=== PATIENT | female | born 1985 | race African-American/Black ===

== ENCOUNTER 2017-01-13 00:22 | Emergency (ER) ==
[2017-01-13 00:29] VITALS: BP 136/89
== END 2017-01-13 02:06 | disposition left against medical advice (07) ==
LOC: ER 00:22
DX: Z53.21 Procedure and treatment not carried out due to patient leaving prior to being seen by health care provider (principal)

== ENCOUNTER 2017-02-17 08:44 | Emergency (ER) | payer SELFPAY ==
--- NOTE | 2017-02-17 10:00 | ER Document Report ---
HPI - HPI Patient complains to provider of: finger pain Pain Level: 2 Context: 31 yo female c/o pain and open wound to right index finger x 2 weeks. no known trauma. had pustule, boyfriend popped it. reports small amount of blood and purulent material expressed. pain is now traveling down finger into hand and forearm. no fever, no paresthesia Associated Symptoms: None Exacerbated by: Movement Relieved by: Denies Similar symptoms previously: No Recently seen / treated by doctor: No - ROS Systems Reviewed and Negative: Yes All other systems reviewed and negative - DERM Skin Color: Normal Past Medical History - General Information source: Patient - Social History Smoking Status: Current Every Day Smoker Chew tobacco use (# tins/day): No Frequency of alcohol use: None Drug Abuse: None Lives with: Family Family History: Reviewed & Not Pertinent Patient has suicidal ideation: No Patient has homicidal ideation: No - Medical History Medical History: Negative Renal/ Medical History: Denies: Hx Peritoneal Dialysis - Immunizations Hx Diphtheria, Pertussis, Tetanus Vaccination: Yes Vertical Provider Document - CONSTITUTIONAL Agree With Documented VS: Yes Exam Limitations: No Limitations - INFECTION CONTROL TRAVEL OUTSIDE OF THE [place] IN LAST 30 DAYS: No - HEENT HEENT: Atraumatic, PERRLA - NECK Neck: Normal Inspection, Supple - RESPIRATORY Respiratory: Breath Sounds Normal, No Respiratory Distress O2 Sat by Pulse Oximetry: 97 - CARDIOVASCULAR Cardiovascular: Regular Rate, Regular Rhythm - MUSCULOSKELETAL/EXTREMETIES Musculoskeletal/Extremeties: Tender - distal right index finger with 2mm wound surrounding calloused skin. mild erythema. no drainage. no nail involvment. no felon. no lymphangitis Course - Re-evaluation Re-evalutation: 02/17/17 10:10 xray negative. no signs of osteomylitis. hand fully functional with good sensation and circulation. will treat with antibiotics and have patient f/u with primary care. pt agreeable with plan and stable for discharge - Vital Signs Vital signs: Temp Pulse Resp BP Pulse Ox 98.6 F 107 H 16 116/82 97 02/17/17 08:48 02/17/17 08:48 02/17/17 08:48 02/17/17 08:48 02/17/17 08:48 Discharge - Discharge Clinical Impression: Finger infection Condition: Stable Disposition: HOME, SELF-CARE Instructions: Cellulitis ([facility]), Antibiotic Therapy ([facility]), Antibiotic Ointment Protection ([facility]), Temporary Splint ([facility]) Additional Instructions: Your xray was negative for bony injury or deep tissue infection wash wound with antibacterial soap and water, apply antibiotic ointment after cleaning wear finger tip splint for protection and comfort follow up with primary care if symptoms persist or worsen Prescriptions: Clindamycin HCl [Cleocin HCl] 300 mg PO QID #40 capsule Forms: Return to Work
--- NOTE | 2017-02-17 10:05 | RADIOLOGY REPORT (SQ) ---
EXAM DESCRIPTION: FINGER RIGHT COMPLETED DATE/TIME: 02/17/2017 9:48 am REASON FOR STUDY: finger infection COMPARISON: None. NUMBER OF VIEWS: Three views. TECHNIQUE: AP, lateral, and oblique images acquired of the right second finger. LIMITATIONS: None. FINDINGS: MINERALIZATION: Normal. BONES: No acute fracture or dislocation. No worrisome bone lesions. SOFT TISSUES: No soft tissue swelling. No foreign body. OTHER: No other significant finding. IMPRESSION: NO RADIOGRAPHIC EVIDENCE OF ACUTE INJURY. COMMENT: SITE OF TRAUMA/COMPLAINT MARKED/STAMP COMPLETED: Yes TECHNICAL DOCUMENTATION: JOB ID: [id number] [employer]- All Rights Reserved
[2017-02-17 10:43] VITALS: BP 101/75
== END 2017-02-17 10:48 | disposition home or self-care (01) ==
LOC: ER 08:44
DX: L08.9 Local infection of the skin and subcutaneous tissue, unspecified (principal); L84 Corns and callosities; M79.644 Pain in right finger(s); F17.200 Nicotine dependence, unspecified, uncomplicated
CPT/HCPCS: 99283

== ENCOUNTER 2017-03-06 05:18 | Emergency (ER) | payer SELFPAY ==
[2017-03-06 06:12] LABS: ABSOLUTE LYMPHOCYTES (AUTO) 1.5 10^3/uL (0.5-4.7); ABSOLUTE MONOCYTES (AUTO) 0.6 10^3/uL (0.1-1.4); ABSOLUTE NEUT (AUTO) 11.3 10^3/uL (1.7-8.2); BASOPHILS % (AUTO) 0.2 % (0-2); EOSINOPHILS % (AUTO) 0.2 % (0-6); HEMATOCRIT 33.5 % (36.0-47.0); HEMOGLOBIN 11.2 g/dL (12.0-15.5); HGB HCT DIFFERENCE 0.1; LYMPHOCYTES % (AUTO) 11.4 % (13-45); MEAN CORPUSCULAR HEMOGLOBIN 26.3 pg (27.0-33.4); MEAN CORPUSCULAR HGB CONC 33.4 g/dL (32.0-36.0); MEAN CORPUSCULAR VOLUME 79 fl (80-97); MONOCYTES % (AUTO) 4.8 % (3-13); RED BLOOD COUNT 4.26 10^6/uL (3.72-5.28); RED CELL DISTRIBUTION WIDTH 14.6 % (11.5-14.0); SEGMENTED NEUTROPHILS % (AUTO) 83.4 % (42-78); WHITE BLOOD COUNT 13.6 10^3/uL (4.0-10.5)
[2017-03-06 06:19] LABS: APPEARANCE,URINE SLIGHTLY-CLOUDY; BILIRUBIN,URINE NEGATIVE (NEGATIVE); GLUCOSE, URINE NEGATIVE (NEGATIVE); KETONES,URINE TRACE mg/dL (NEGATIVE); LEUKOCYTE ESTERASE,URINE NEGATIVE (NEGATIVE); NITRITE,URINE NEGATIVE (NEGATIVE); PROTEIN,URINE NEGATIVE (NEGATIVE); URINE SPECIFIC GRAVITY 1.019; UROBILINOGEN,URINE NEGATIVE mg/dL (<2.0)
[2017-03-06 06:24] LABS: ANION GAP 12 (5-19); BLOOD UREA NITROGEN 10 mg/dL (7-20); CALCIUM 9.2 mg/dL (8.4-10.2); CARBON DIOXIDE 21 mmol/L (22-30); CHLORIDE 107 mmol/L (98-107); CREATININE RESULT 0.74 mg/dL (0.52-1.25); GLUCOSE 128 mg/dL (75-110); POTASSIUM 3.6 mmol/L (3.6-5.0); SODIUM 140.2 mmol/L (137-145)
--- NOTE | 2017-03-06 06:29 | ER Document Report ---
ED General - General Chief Complaint: Vag Bleeding, +preg <12wks Stated Complaint: ABDOMINAL PAIN AND DISCHARGE Time Seen by Provider: 03/06/17 06:02 Mode of Arrival: Ambulatory Information source: Patient Notes: 31 yr old female 6.5 weeks presents with complaints of vaginal bright red spotting over the past 10 days. pt denies any fevers or chills, nausea or vomiting. TRAVEL OUTSIDE OF THE [place] IN LAST 30 DAYS: No - HPI Onset: Last week Onset/Duration: Persistent Quality of pain: Cramping Severity: Mild Pain Level: 1 Associated symptoms: Other Exacerbated by: Denies Relieved by: Denies Similar symptoms previously: No Recently seen / treated by doctor: No - Related Data Allergies/Adverse Reactions: hydromorphone [From Dilaudid] Allergy (Verified 02/17/17 08:49) Past Medical History - Social History Smoking Status: Never Smoker Cigarette use (# per day): No Chew tobacco use (# tins/day): No Smoking Education Provided: No Family History: Reviewed & Not Pertinent Patient has suicidal ideation: No Patient has homicidal ideation: No Renal/ Medical History: Denies: Hx Peritoneal Dialysis - Immunizations Hx Diphtheria, Pertussis, Tetanus Vaccination: Yes Review of Systems - Review of Systems Notes: REVIEW OF SYSTEMS: CONSTITUTIONAL : Denies fever, chills, or sweats. Denies recent illness. EENT: Denies eye, ear, throat, or mouth pain or symptoms. Denies nasal or sinus congestion or discharge. Denies throat, tongue, or mouth swelling or difficulty swallowing. CARDIOVASCULAR: Denies chest pain. Denies palpitations or racing or irregular heart beat. Denies ankle edema. RESPIRATORY: Denies cough, cold, or chest congestion. Denies shortness of breath, difficulty breathing, or wheezing. GASTROINTESTINAL: Denies abdominal pain or distention. Denies nausea, vomiting , or diarrhea. Denies blood in vomitus, stools, or per rectum. Denies black, tarry stools. Denies constipation. GENITOURINARY: Denies difficulty urinating, painful urination, burning, frequency, blood in urine, or discharge. FEMALE GENITOURINARY: admits to vaginal bleeding MUSCULOSKELETAL: Denies back or neck pain or stiffness. Denies joint pain or swelling. SKIN: Denies rash, lesions or sores. HEMATOLOGIC : Denies easy bruising or bleeding. LYMPHATIC: Denies swollen, enlarged glands. NEUROLOGICAL: Denies confusion or altered mental status. Denies passing out or loss of consciousness. Denies dizziness or lightheadedness. Denies headache. Denies weakness or paralysis or loss of use of either side. Denies problems with gait or speech. Denies sensory loss, numbness, or tingling. Denies seizures. PSYCHIATRIC: Denies anxiety or stress. Denies depression, suicidal ideation, or homicidal ideation. ALL OTHER SYSTEMS REVIEWED AND NEGATIVE. PHYSICAL EXAMINATION: GENERAL: Well-appearing, well-nourished and in no acute distress. HEAD: Atraumatic, normocephalic. EYES: Pupils equal round and reactive to light, extraocular movements intact, conjunctiva are normal. ENT: Nares patent, oropharynx clear without exudates. Moist mucous membranes. NECK: Normal range of motion, supple without lymphadenopathy LUNGS: Breath sounds clear to auscultation bilaterally and equal. No wheezes rales or rhonchi. HEART: Regular rate and rhythm without murmurs ABDOMEN: Soft, nontender, nondistended abdomen. No guarding, no rebound. No masses appreciated. Female : deferred Musculoskeletal: Normal range of motion, no pitting or edema. No cyanosis. NEUROLOGICAL: Cranial nerves grossly intact. Normal speech, normal gait. Normal sensory, motor exams PSYCH: Normal mood, normal affect. SKIN: Warm, Dry, normal turgor, no rashes or lesions noted. Dictation was performed using [employer] voice recognition software Physical Exam - Vital signs Vitals: Temp Pulse Resp BP Pulse Ox 98.8 F 115 H 18 133/81 H 96 03/06/17 05:27 03/06/17 05:27 03/06/17 05:27 03/06/17 05:27 03/06/17 05:27 Course - Re-evaluation Re-evalutation: 03/06/17 06:31 lab work , u/s pending to rule out ectopic vs threatened miscarriage 03/06/17 07:23 Patient's hCG is approximately 10,000, ultrasound report and my conversation with the radiologist notes a 5-1/2 week , however I will have the patient follow-up for hCG repeat in 48 hours patient is happy with this plan After performing a Medical Screening Examination, I estimate there is LOW risk for ACUTE APPENDICITIS, BOWEL OBSTRUCTION, ACUTE CHOLECYSTITIS, PERFORATED DIVERTICULITIS, INCARCERATED HERNIA, PANCREATITIS, PELVIC INFLAMMATORY DISEASE, PERFORATED ULCER, ECTOPIC , or TUBO-OVARIAN ABSCESS, thus I consider the discharge disposition reasonable. Also, there is no evidence or peritonitis , sepsis, or toxicity. I have reevaluated this patient multiple times and no significant life threatening changes are noted. The patient and I have discussed the diagnosis and risks, and we agree with discharging home with close follow-up with the understanding that symptoms and presentations can change. We also discussed returning to the Emergency Department immediately if new or worsening symptoms occur. We have discussed the symptoms which are most concerning (e.g., bloody stool, fever, changing or worsening pain, vomiting) that necessitate immediate return. 03/06/17 07:25 - Vital Signs Vital signs: Temp Pulse Resp BP Pulse Ox 98.8 F 115 H 18 133/81 H 96 03/06/17 05:27 03/06/17 05:27 03/06/17 05:27 03/06/17 05:27 03/06/17 05:27 - Laboratory Result Diagrams: 03/06/17 05:57 03/06/17 05:57 Laboratory results interpreted by me: 03/06/17 03/06/17 03/06/17 05:45 05:57 05:57 WBC 13.6 H Hgb 11.2 L Hct 33.5 L MCV 79 L MCH 26.3 L RDW 14.6 H Seg Neutrophils % 83.4 H Lymphocytes % 11.4 L Absolute Neutrophils 11.3 H Carbon Dioxide 21 L Glucose 128 H Serum HCG, Qual Beta HCG, Quant Urine Ketones TRACE H 03/06/17 03/06/17 05:57 05:57 WBC Hgb Hct MCV MCH RDW Seg Neutrophils % Lymphocytes % Absolute Neutrophils Carbon Dioxide Glucose Serum HCG, Qual POSITIVE H Beta HCG, Quant 9848.00 H Urine Ketones - Diagnostic Test Radiology reviewed: Image reviewed, Reports reviewed Discharge - Discharge Clinical Impression: Threatened miscarriage in early Condition: Stable Disposition: HOME, SELF-CARE Instructions: [facility] [employer], Threatened Miscarriage ([facility]) Additional Instructions: Follow up with your physician tomorrow for further care or return to the ED IMMEDIATELY if symptoms worsen or new concerns occur. If you cannot afford to follow up with your primary care physician a list of low cost clinics have been provided at the end of your discharge papers as well. Forms: Return to Work, Follow-Up Laboratory Testing
--- NOTE | 2017-03-06 06:49 | RADIOLOGY REPORT (SQ) ---
EXAM DESCRIPTION: U/S OB TRANSVAG W/DOPPLER COMPLETED DATE/TIME: 03/06/2017 6:32 am REASON FOR STUDY: with vaginal bleeding COMPARISON: None. TECHNIQUE: Transvaginal static and realtime grayscale images acquired of the pelvis. Additional estee cted spectral and color Doppler images recorded. All images stored on PACs. BHCG: Not available. LIMITATIONS: None. FINDINGS: UTERUS: No pole identified. Likely intrauterine gestational sac with decidual react ion possible yolk sac ; if viable mean sac diameter of 1.0 cm would correspond with a gestational age of 5 weeks and 5 days. RIGHT ADNEXA: Normal ovary with normal vascular flow. 3.5 cm. No adnexal free fluid. No adnexal masses. 1.2 cm likely corpus luteal cyst. LEFT ADNEXA: Normal ovary with normal vascular flow. 2.3 cm. No adnexal free fluid. No adnexal masses. FREE FLUID: None. OTHER: 2.9 cm cervical length. IMPRESSION: Likely intrauterine gestational sac. No pole identified at this time. Differenti al diagnosis includes early viable gestation, gestational loss, or occult ectopic gestation. ECTOPIC CANNOT BE EXCLUDED. FOLLOW-UP ULTRASOUND AND SERIAL BHCG LEVELS STRONGLY RECOMMENDED TO ACCURATELY ASSESS STATU S. TECHNICAL DOCUMENTATION: JOB ID: [id number] [employer]- All Rights Reserved
[2017-03-06 08:04] VITALS: BP 104/70
== END 2017-03-06 08:05 | disposition home or self-care (01) ==
LOC: ER 05:18
DX: O20.0 Threatened abortion (principal); O46.91 Antepartum hemorrhage, unspecified, first trimester; Z3A.01 Less than 8 weeks gestation of pregnancy
CPT/HCPCS: 36415; 76817; 80048; 81001; 84702; 84703; 85025; 86900; 86901; 93976; 99284

== ENCOUNTER → 2017-03-08 | Outpatient (CLI) | payer SELFPAY | LOC: LAB 15:52 | PROVIDERS: ATTEND Emergency Medicine | DX: O20.0 Threatened abortion (principal) | CPT/HCPCS: 36415; 84702 ==

== ENCOUNTER 2017-04-29 05:01 | Emergency (ER) | payer MEDICAID ==
[2017-04-29 06:31] LABS: APPEARANCE,URINE SLIGHTLY-CLOUDY; BILIRUBIN,URINE NEGATIVE (NEGATIVE); CALCIUM OXALATE CRYSTALS,URINE MANY /HPF; GLUCOSE, URINE NEGATIVE (NEGATIVE); KETONES,URINE NEGATIVE (NEGATIVE); LEUKOCYTE ESTERASE,URINE NEGATIVE (NEGATIVE); NITRITE,URINE NEGATIVE (NEGATIVE); PROTEIN,URINE NEGATIVE (NEGATIVE); URINE SPECIFIC GRAVITY 1.027; UROBILINOGEN,URINE NEGATIVE mg/dL (<2.0)
[2017-04-29] MEDS ORDERED: NORMAL SALINE 1000 ML 1,000 ML IV ONE (06:48)
--- NOTE | 2017-04-29 06:48 | ER Document Report ---
ED General - General Mode of Arrival: Ambulatory Information source: Patient TRAVEL OUTSIDE OF THE [place] IN LAST 30 DAYS: No - HPI Onset: Other - 3 days Associated symptoms: Other - see above <GRETA SIU - Last Filed: 04/29/17 11:25> <FOREST COBB - Last Filed: 04/29/17 16:48> - General Chief Complaint: Headache Stated Complaint: HEADACHES Time Seen by Provider: 04/29/17 06:27 Notes: Patient is a 32 year old female who presents to the ED with complaints of a headache x3 days. She states that the headaches never fully go away and it is sharp. She states she has also had heart palpitations, dizziness and felt lightheaded at various times and when she lays in certain positions. She is currently 13 weeks and has felt nauseous. She has not had any vomiting recently. She recently started taking Dicelgis for her nausea and states it has been making her feel worse. She has no allergies to any medications. (GRETA SIU) - Related Data Allergies/Adverse Reactions: hydromorphone [From Dilaudid] Allergy (Verified 02/17/17 08:49) Past Medical History - General Information source: Patient - Social History Smoking Status: Unknown if Ever Smoked Family History: Reviewed & Not Pertinent Patient has suicidal ideation: No Patient has homicidal ideation: No Renal/ Medical History: Denies: Hx Peritoneal Dialysis - Immunizations Hx Diphtheria, Pertussis, Tetanus Vaccination: Yes <GRETA SIU - Last Filed: 04/29/17 11:25> Review of Systems - Review of Systems Constitutional: No symptoms reported EENT: No symptoms reported Cardiovascular: See HPI, Palpitations, Dizziness, Lightheaded Respiratory: No symptoms reported Gastrointestinal: See HPI, Nausea Genitourinary: No symptoms reported Female Genitourinary: No symptoms reported Musculoskeletal: No symptoms reported Skin: No symptoms reported Hematologic/Lymphatic: No symptoms reported Neurological/Psychological: See HPI, Headaches <GRETA SIU - Last Filed: 04/29/17 11:25> Physical Exam - General General appearance: Alert - HEENT Head: Normocephalic, Atraumatic Eyes: Normal Extraocular movements intact: Yes Pupils: PERRL Mucous membranes: Dry - Respiratory Respiratory status: No respiratory distress Breath sounds: Normal - Cardiovascular Rhythm: Regular Heart sounds: Normal auscultation Murmur: No - Abdominal Inspection: Gravid female - Back Back: Normal - Extremities General upper extremity: Normal inspection, Normal ROM General lower extremity: Normal inspection, Normal ROM. No: Edema - Neurological Neuro grossly intact: Yes - Psychological Associated symptoms: Normal affect, Normal mood - Skin Skin Temperature: Warm Skin Moisture: Dry Skin Color: Normal <GRETA SIU - Last Filed: 04/29/17 11:25> - Vital signs Vitals: Temp Pulse Resp BP Pulse Ox 98.5 F 88 18 117/79 99 04/29/17 05:07 04/29/17 05:07 04/29/17 05:07 04/29/17 05:07 04/29/17 05:07 Course - Laboratory Result Diagrams: 04/29/17 06:55 04/29/17 06:55 - EKG Interpretation by Ri EKG shows normal: Sinus rhythm Rate: Normal - 89 Rhythm: NSR When compared to previous EKG there are: No significant change <GRETA SIU - Last Filed: 04/29/17 11:25> - Laboratory Result Diagrams: 04/29/17 06:55 04/29/17 06:55 <FOREST COBB - Last Filed: 04/29/17 16:48> - Re-evaluation Re-evalutation: 04/29/17 Patient is a 32-year-old female who comes in complaining of headache, palpitations, dry mouth, nausea. Patient recently was started on Diclegis for nausea and . Patient states that since she started taking the medication this is how she is feeling. Patient was given fluids and Reglan. She is feeling much better. No headache, palpitations, or nausea. Patient will be discharged home with prescription for Reglan. She is to return if she has any worsening or concerning symptoms. (FOREST COBB) - Vital Signs Vital signs: Temp Pulse Resp BP Pulse Ox 98.3 F 86 16 104/57 L 99 04/29/17 08:54 04/29/17 08:54 04/29/17 08:54 04/29/17 08:54 04/29/17 08:54 - Laboratory Laboratory results interpreted by me: 04/29/17 04/29/1717 05:25 06:55 06:55 WBC 12.3 H Hgb 10.2 L Hct 30.3 L MCV 79 L MCH 26.5 L RDW 15.1 H Absolute Neutrophils 8.5 H AST 55 H ALT 64 H Urine Ascorbic Acid 20 H Discharge <GRETA SIU - Last Filed: 04/29/17 11:25> <FOREST COBB - Last Filed: 04/29/17 16:48> - Discharge Clinical Impression: Palpitations Headache Qualifiers: Headache type: unspecified Headache chronicity pattern: unspecified pattern Intractability: not intractable Qualified Code(s): R51 - Headache Medication adverse effect Qualifiers: Encounter type: initial encounter Qualified Code(s): T88.7XXA - Unspecified adverse effect of drug or medicament, initial encounter Condition: Stable Disposition: HOME, SELF-CARE Instructions: Headache ([facility]), Medication Side Effects ([facility]), Palpitations ( Irregular or Rapid Heartrate) ([facility]), Reglan ([facility]) Additional Instructions: Stop taking Diclegis. Please make sure you are drinking plenty of fluids. Prescriptions: Ondansetron [Zofran Odt 4 mg Tablet] 1 tab PO Q6HP PRN #30 tab.rapdis PRN Reason: For Nausea/Vomiting Metoclopramide HCl [Reglan 10 mg Tablet] 1 tab PO TIDP PRN #30 tablet PRN Reason: Forms: Return to Work Referrals: FRANC EID MD [Primary Care Provider] - Follow up as needed Scribe Attestation: 04/29/17 16:47 I personally performed the services described in the documentation, reviewed and edited the documentation which was dictated to the scribe in my presence, and it accurately records my words and actions. (FOREST COBB) Scribe Documentation - Scribe Written by Rosemarie:: rosemarie Jaime, 04/29/2017, 0729 acting as scribe for :: Allie <GRETA SIU - Last Filed: 04/29/17 11:25>
[2017-04-29] MEDS ORDERED: METOCLOPRAMIDE HCL INJ/PF 10 MG/2 ML SDV IV ONE (06:49)
[2017-04-29 07:23] LABS: ABSOLUTE EOSINOPHILS # (AUTO) 0.2 10^3/uL (0.0-0.6); ABSOLUTE LYMPHOCYTES (AUTO) 2.7 10^3/uL (0.5-4.7); ABSOLUTE MONOCYTES (AUTO) 0.8 10^3/uL (0.1-1.4); ABSOLUTE NEUT (AUTO) 8.5 10^3/uL (1.7-8.2); BASOPHILS % (AUTO) 0.2 % (0-2); EOSINOPHILS % (AUTO) 1.7 % (0-6); HEMATOCRIT 30.3 % (36.0-47.0); HEMOGLOBIN 10.2 g/dL (12.0-15.5); HGB HCT DIFFERENCE 0.3; LYMPHOCYTES % (AUTO) 22.3 % (13-45); MEAN CORPUSCULAR HEMOGLOBIN 26.5 pg (27.0-33.4); MEAN CORPUSCULAR HGB CONC 33.5 g/dL (32.0-36.0); MEAN CORPUSCULAR VOLUME 79 fl (80-97); MONOCYTES % (AUTO) 6.9 % (3-13); RED BLOOD COUNT 3.83 10^6/uL (3.72-5.28); RED CELL DISTRIBUTION WIDTH 15.1 % (11.5-14.0); SEGMENTED NEUTROPHILS % (AUTO) 68.9 % (42-78); WHITE BLOOD COUNT 12.3 10^3/uL (4.0-10.5)
--- NOTE | 2017-04-29 07:25 | EKG REPORT ---
SEVERITY:- NORMAL ECG - SINUS RHYTHM : Confirmed by: Maximino Fine MD 29-Apr-2017 07:25:02
[2017-04-29 07:43] LABS: ALANINE AMINOTRANSFERASE 64 U/L (9-52); ALBUMIN 3.6 g/dL (3.5-5.0); ALKALINE PHOSPHATASE 73 U/L (38-126); ANION GAP 10 (5-19); ASPARTATE AMINO TRANSFERASE 55 U/L (14-36); BILIRUBIN,DIRECT 0.3 mg/dL (0.0-0.4); BILIRUBIN,TOTAL 0.3 mg/dL (0.2-1.3); BLOOD UREA NITROGEN 10 mg/dL (7-20); CALCIUM 9.7 mg/dL (8.4-10.2); CARBON DIOXIDE 24 mmol/L (22-30); CHLORIDE 104 mmol/L (98-107); CREATININE RESULT 0.77 mg/dL (0.52-1.25); GLUCOSE 83 mg/dL (75-110); POTASSIUM 3.8 mmol/L (3.6-5.0); SODIUM 137.5 mmol/L (137-145); TOTAL PROTEIN 6.5 g/dL (6.3-8.2)
[2017-04-29 08:56] VITALS: BP 104/57
== END 2017-04-29 08:54 | disposition home or self-care (01) ==
LOC: ER 05:01
DX: O9A.211 Injury, poisoning and certain other consequences of external causes complicating pregnancy, first trimester (principal); R51 Headache; R00.2 Palpitations; T45.0X5A Adverse effect of antiallergic and antiemetic drugs, initial encounter; Z3A.13 13 weeks gestation of pregnancy; R42 Dizziness and giddiness; O26.891 Other specified pregnancy related conditions, first trimester; R11.0 Nausea; R68.2 Dry mouth, unspecified; Z88.5 Allergy status to narcotic agent
CPT/HCPCS: 99284; 96374; 36415; 84443; 85025; 80053; 81001; 93005; 93010; J2765; J7030

== ENCOUNTER 2017-06-03 16:06 | Emergency (ER) | payer MEDICAID ==
[2017-06-03] MEDS ORDERED: NORMAL SALINE 1000 ML 1,000 ML IV ONE (16:24)
[2017-06-03] MEDS ORDERED: METOCLOPRAMIDE HCL INJ/PF 10 MG/2 ML SDV IV ONE (16:24)
--- NOTE | 2017-06-03 16:26 | ER Document Report ---
ED Medical Screen (RME) - General Chief Complaint: OB Problem (<20wks) Stated Complaint: HEADACHE,HAND SWELLING Time Seen by Provider: 06/03/17 16:21 TRAVEL OUTSIDE OF THE [place] IN LAST 30 DAYS: No - HPI Notes: 06/03/17 16:25 [facility] patient states she is taken 24 tablets of Tylenol in the last 72 hours. - Related Data Allergies/Adverse Reactions: hydromorphone [From Dilaudid] Allergy (Verified 06/03/17 16:12) Past Medical History - Social History Chew tobacco use (# tins/day): No Frequency of alcohol use: None Drug Abuse: None Pulmonary Medical History: Reports: Hx Asthma Renal/ Medical History: Denies: Hx Peritoneal Dialysis Past Surgical History: Reports: Hx Section - x2 - Immunizations Hx Diphtheria, Pertussis, Tetanus Vaccination: Yes Review of Systems - Review of Systems Neurological/Psychological: Headaches Physical Exam - Vital signs Vitals: Temp Pulse Resp BP Pulse Ox 98.7 F 105 H 18 117/79 99 06/03/17 16:12 06/03/17 16:12 06/03/17 16:12 06/03/17 16:12 06/03/17 16:12 - Respiratory Respiratory status: No respiratory distress Chest status: Nontender Breath sounds: Normal Chest palpation: Normal Course - Vital Signs Vital signs: Temp Pulse Resp BP Pulse Ox 98.7 F 105 H 18 117/79 99 06/03/17 16:12 06/03/17 16:12 06/03/17 16:12 06/03/17 16:12 06/03/17 16:12
[2017-06-03 16:48] LABS: APPEARANCE,URINE SLIGHTLY-CLOUDY; BILIRUBIN,URINE NEGATIVE (NEGATIVE); GLUCOSE, URINE NEGATIVE (NEGATIVE); KETONES,URINE NEGATIVE (NEGATIVE); LEUKOCYTE ESTERASE,URINE TRACE (NEGATIVE); NITRITE,URINE NEGATIVE (NEGATIVE); PROTEIN,URINE 30 mg/dL (NEGATIVE); URINE SPECIFIC GRAVITY 1.032; UROBILINOGEN,URINE NEGATIVE mg/dL (<2.0)
[2017-06-03 17:08] LABS: ABSOLUTE EOSINOPHILS # (AUTO) 0.1 10^3/uL (0.0-0.6); ABSOLUTE LYMPHOCYTES (AUTO) 2.2 10^3/uL (0.5-4.7); ABSOLUTE MONOCYTES (AUTO) 0.7 10^3/uL (0.1-1.4); ABSOLUTE NEUT (AUTO) 8.7 10^3/uL (1.7-8.2); BASOPHILS % (AUTO) 0.4 % (0-2); EOSINOPHILS % (AUTO) 1.1 % (0-6); HEMATOCRIT 31.3 % (36.0-47.0); HEMOGLOBIN 10.4 g/dL (12.0-15.5); HGB HCT DIFFERENCE -0.1; LYMPHOCYTES % (AUTO) 18.9 % (13-45); MEAN CORPUSCULAR HEMOGLOBIN 26.3 pg (27.0-33.4); MEAN CORPUSCULAR HGB CONC 33.1 g/dL (32.0-36.0); MEAN CORPUSCULAR VOLUME 80 fl (80-97); RED BLOOD COUNT 3.94 10^6/uL (3.72-5.28); RED CELL DISTRIBUTION WIDTH 14.8 % (11.5-14.0); SEGMENTED NEUTROPHILS % (AUTO) 73.6 % (42-78); WHITE BLOOD COUNT 11.9 10^3/uL (4.0-10.5)
--- NOTE | 2017-06-03 17:09 | ER Document Report ---
ED GI/ - General Chief Complaint: OB Problem (<20wks) Stated Complaint: HEADACHE,HAND SWELLING Time Seen by Provider: 06/03/17 16:21 Mode of Arrival: Ambulatory Information source: Patient Notes: Pt is a 32 year old female 18 weeks who [facility] possibly taking too much tylenol. She states she has taken at least 24 tablets in 72 hours. She complains of headache constantly, daily for months since being . She has also been taking BC powder for headache since finding out she was and has had nausea/vomiting. She complains of generalized weakness that has kept her from getting out of the bed , keeping her 12 year old son home from school to "take care of me" and allowing him to catch vomit from her mouth with a tissue while she laid down because she didn't have the energy to sit up to vomit. She also complains of 2-3 days of runny nose and congestion, sneezing. She denies cough, fever, chills, etc. TRAVEL OUTSIDE OF THE [place] IN LAST 30 DAYS: No - Related Data Allergies/Adverse Reactions: hydromorphone [From Dilaudid] Allergy (Verified 06/03/17 16:12) Home Medications: Current Home Medications Ranitidine HCl [Zantac 75 mg Tablet] 75 mg PO PRN PRN 06/03/17 [History] Past Medical History - General Information source: Patient - Social History Smoking Status: Never Smoker Chew tobacco use (# tins/day): No Frequency of alcohol use: None Drug Abuse: None Family History: Reviewed & Not Pertinent Patient has suicidal ideation: No Patient has homicidal ideation: No Pulmonary Medical History: Reports: Hx Asthma Renal/ Medical History: Denies: Hx Peritoneal Dialysis Past Surgical History: Reports: Hx Section - x2 - Immunizations Hx Diphtheria, Pertussis, Tetanus Vaccination: Yes Review of Systems - Review of Systems Constitutional: See HPI EENT: No symptoms reported Cardiovascular: No symptoms reported Respiratory: No symptoms reported Gastrointestinal: No symptoms reported Genitourinary: No symptoms reported Female Genitourinary: See HPI Musculoskeletal: No symptoms reported Skin: No symptoms reported Hematologic/Lymphatic: No symptoms reported Neurological/Psychological: See HPI Physical Exam - Vital signs Vitals: Temp Pulse Resp BP Pulse Ox 98.7 F 105 H 18 117/79 99 06/03/17 16:12 06/03/17 16:12 06/03/17 16:12 06/03/17 16:12 06/03/17 16:12 - Notes Notes: PHYSICAL EXAMINATION: GENERAL: appears tired, but in no acute distress. HEAD: Atraumatic, normocephalic. EYES: Pupils equal round and reactive to light, extraocular movements intact, sclera anicteric, conjunctiva are normal. ENT: nares with mucoid discharge, postnasal drip noted, oropharynx without erythema or enlarged tonsils NECK: Normal range of motion, supple without lymphadenopathy LUNGS: CTAB and equal. No wheezes rales or rhonchi. HEART: Regular rate and rhythm without murmurs ABDOMEN: Soft, no tenderness. No guarding, no rebound BACK: no vertebral tenderness, normal ROM GI/: no CVA tenderness EXTREMITIES: Normal range of motion, no pitting edema. No cyanosis. NEUROLOGICAL: Cranial nerves grossly intact. Normal sensory/motor exams. PSYCH: Normal mood, normal affect. SKIN: Warm, Dry, normal turgor, no rashes or lesions noted Course - Re-evaluation Re-evalutation: 06/03/17 22:34 labwork is unremarkable today, pt has received IV fluids here and feels better. She also received reglan and phenergan, zyrtec for her headache and congestion. her glucose is normal today. I've advised her follow up with obgyn. - Vital Signs Vital signs: Temp Pulse Resp BP Pulse Ox 98.7 F 84 16 98/57 L 99 06/03/17 18:03 06/03/17 18:03 06/03/17 18:03 06/03/17 18:03 06/03/17 16:12 - Laboratory Result Diagrams: 06/03/17 16:53 06/03/17 16:53 Laboratory results interpreted by me: 06/03/17 06/03/17 06/03/17 16:25 16:53 16:53 WBC 11.9 H Hgb 10.4 L Hct 31.3 L MCH 26.3 L RDW 14.8 H Absolute Neutrophils 8.7 H Chloride 108 H Carbon Dioxide 21 L AST 40 H Beta HCG, Quant 02077.00 H Urine Protein 30 H Ur Leukocyte Esterase TRACE H Acetaminophen < 10 L Discharge - Discharge Clinical Impression: Nausea, Weakness Headache Qualifiers: Headache type: other headache syndrome Qualified Code(s): G44.89 - Other headache syndrome Qualifiers: Weeks of gestation: 18 weeks Qualified Code(s): Z3A.18 - 18 weeks gestation of Condition: Stable Disposition: HOME, SELF-CARE Additional Instructions: Return immediately for any new or worsening symptoms. Follow up with primary care provider, call tomorrow to make followup appointment. Prescriptions: Cetirizine HCl [All Day Allergy] 10 mg PO DAILY #30 tablet Promethazine HCl [Phenergan 25 mg Tablet] 1 - 2 tab PO Q6H PRN #30 tablet PRN Reason: Referrals: MELISSA ECHAVARRIA MD [Primary Care Provider] - Follow up as needed [facility] [Provider Group] - Follow up as needed
[2017-06-03 17:13] LABS: PROTHROMBIN TIME 12.2 SEC (11.4-15.4)
[2017-06-03 17:14] LABS: PARTIAL THROMBOPLASTIN TIME 26.8 SEC (23.5-35.8)
[2017-06-03 17:44] LABS: ALANINE AMINOTRANSFERASE 29 U/L (9-52); ALBUMIN 3.9 g/dL (3.5-5.0); ALKALINE PHOSPHATASE 88 U/L (38-126); ANION GAP 11 (5-19); ASPARTATE AMINO TRANSFERASE 40 U/L (14-36); BILIRUBIN,DIRECT 0.4 mg/dL (0.0-0.4); BILIRUBIN,TOTAL 0.6 mg/dL (0.2-1.3); BLOOD UREA NITROGEN 7 mg/dL (7-20); CARBON DIOXIDE 21 mmol/L (22-30); CHLORIDE 108 mmol/L (98-107); CREATININE RESULT 0.65 mg/dL (0.52-1.25); GLUCOSE 85 mg/dL (75-110); POTASSIUM 3.7 mmol/L (3.6-5.0); SODIUM 140.2 mmol/L (137-145); TOTAL PROTEIN 7.3 g/dL (6.3-8.2)
[2017-06-03] MEDS ORDERED: PROMETHAZINE HCL 25 MG TABLET PO ONE (18:06)
[2017-06-03] MEDS ORDERED: CETIRIZINE 10 MG TABLET PO ONE (18:07)
[2017-06-03 18:14] VITALS: BP 98/57
== END 2017-06-03 18:34 | disposition home or self-care (01) ==
LOC: ER 16:06
DX: O21.9 Vomiting of pregnancy, unspecified (principal); O99.352 Diseases of the nervous system complicating pregnancy, second trimester; G44.89 Other headache syndrome; O26.892 Other specified pregnancy related conditions, second trimester; R53.1 Weakness; R09.82 Postnasal drip; R06.7 Sneezing; R09.89 Other specified symptoms and signs involving the circulatory and respiratory systems; O99.512 Diseases of the respiratory system complicating pregnancy, second trimester; J45.909 Unspecified asthma, uncomplicated; Z3A.18 18 weeks gestation of pregnancy; Z88.5 Allergy status to narcotic agent
CPT/HCPCS: 99284; 96361; 96374; 36415; 84702; 80307; 85025; 85610; 85730; 80053; 81001; J2765; J3490 ×2; J7030

== ENCOUNTER 2017-09-27 02:09 | Outpatient (CLI) | payer MEDICAID ==
[2017-09-27 03:11] LABS: APPEARANCE,URINE SLIGHTLY-CLOUDY; BILIRUBIN,URINE NEGATIVE (NEGATIVE); COLOR,URINE YELLOW; GLUCOSE, URINE NEGATIVE (NEGATIVE); KETONES,URINE 20 mg/dL (NEGATIVE); LEUKOCYTE ESTERASE,URINE NEGATIVE (NEGATIVE); NITRITE,URINE NEGATIVE (NEGATIVE); PROTEIN,URINE NEGATIVE (NEGATIVE); URINE SPECIFIC GRAVITY 1.017; UROBILINOGEN,URINE NEGATIVE mg/dL (<2.0)
[2017-09-27 03:27] LABS: URINE AMPHETAMINES SCREEN NEGATIVE; URINE BARBITURATES SCREEN NEGATIVE; URINE BENZODIAZEPINES SCREEN NEGATIVE; URINE COCAINE SCREEN NEGATIVE; URINE MARIJUANA (THC) SCREEN NEGATIVE; URINE METHADONE SCREEN NEGATIVE; URINE PHENCYCLIDINE SCREEN NEGATIVE
[2017-09-27] MEDS ORDERED: MAG HYDROX/AL HYDROX/SIMETH SUSP 30 ML UDCUP ONE (03:57)
== END 2017-09-27 05:40 | disposition home or self-care (01) ==
LOC: LC 02:09
PROVIDERS: ATTEND Student in an Organized Health Care Education/Training Program
PROC: 4A1HXCZ Monitoring of Products of Conception, Cardiac Rate, External Approach (ICD-10-PCS; principal; 2017-09-27)
DX: O47.03 False labor before 37 completed weeks of gestation, third trimester (principal); O26.893 Other specified pregnancy related conditions, third trimester; E86.0 Dehydration; Z3A.35 35 weeks gestation of pregnancy
CPT/HCPCS: 81001; 80307; 59025; J3490

== ENCOUNTER 2017-10-14 12:29 | Outpatient (CLI) | payer MEDICAID | END 2017-10-14 15:36 | disposition home or self-care (01) | LOC: LC 12:29 | PROVIDERS: ATTEND Student in an Organized Health Care Education/Training Program | PROC: 4A1HXCZ Monitoring of Products of Conception, Cardiac Rate, External Approach (ICD-10-PCS; principal; 2017-10-14) | DX: O47.1 False labor at or after 37 completed weeks of gestation (principal); O24.913 Unspecified diabetes mellitus in pregnancy, third trimester; Z3A.37 37 weeks gestation of pregnancy | CPT/HCPCS: 59025 ==

== ENCOUNTER 2017-10-21 20:34 | Outpatient (CLI) | payer MEDICAID ==
--- NOTE | 2017-10-21 20:46 | Non Stress Test Report ---
Non Stress Test Datetime Report Generated by CPN: 10/21/2017 20:45 DEMOGRAPHIC EGA NST: 37.0 EGA NST: 34.4 INDICATION Indication for Study: Diabetes Mellitus; Ordered by Provider Indication for Study: Ordered by Provider; Other Indication for Study (NST) Other: LC VITAL SIGNS Temperature - NST: 97.8 Pulse - NST: 102 RESP - NST: 16 NBPSYS NST: 122 NBPDIA NST: 68 URINE RESULTS Urine Protein, NST: Negative Urine Ketones - NST: Positive Urine Glucose - NST: Negative Urine Blood - NST: Negative MONITORING Monitor Explained: Monitor Explained; Test Explained; Patient Verbalized Understanding Monitor Explained: Monitor Explained; Test Explained; Patient Verbalized Understanding Time on Monitor: 10/14/2017 12:38 Time on Monitor: 09/27/2017 02:37 Time off Monitor: 10/14/2017 15:18 Time off Monitor: 09/27/2017 05:25 NST Duration: 160 NST Duration: 168 NST INTERVENTIONS NST Interventions: PO Hydration; Reposition Patient NST Interventions: IV Fluids; Reposition Patient Physician Notified NST: El Ramirez CNM Physician Notified NST: Dr Lowery BABY A: [id number] BABY A Movement : Present (Annotations: Data stored by [facility] on behalf of user) Movement : Present; Increased Contraction Frequency : irregular Contraction Frequency : 1-20 FHR Baseline : 150 FHR Baseline : 150 Accelerations : 15X15 Accelerations : 15X15 Decelerations : None Decelerations : None Variability : Moderate 6-25bpm Variability : Moderate 6-25bpm NST Review: Meets Criteria for Reactive NST NST Review: Meets Criteria for Reactive NST NST Review and Verified By : Shirlene Stahl [facility] NST Results: Reactive NST Results: Reactive NST REPORT Report Trigger: Send Report
--- NOTE | 2017-10-21 21:21 | Non Stress Test Report ---
Non Stress Test Datetime Report Generated by CPN: 10/21/2017 21:21 DEMOGRAPHIC EGA NST: 38.0 INDICATION Indication for Study: Ordered by Provider; Other Indication for Study (NST) Other: repeat from office MONITORING Monitor Explained: Monitor Explained; Test Explained; Patient Verbalized Understanding Time on Monitor: 10/21/2017 20:50 NST INTERVENTIONS NST Interventions: PO Hydration Physician Notified NST: Shields BABY A Movement : Present Contraction Frequency : irritability FHR Baseline : 145 Accelerations : 15X15 Decelerations : None Variability : Moderate 6-25bpm NST Review: Meets Criteria for Reactive NST NST Review and Verified By : B Jenaro, RN NST Results: Reactive NST REPORT Report Trigger: Send Report
== END 2017-10-21 21:26 | disposition home or self-care (01) ==
LOC: LC 20:34
PROVIDERS: ATTEND Obstetrics & Gynecology
PROC: 4A1HXCZ Monitoring of Products of Conception, Cardiac Rate, External Approach (ICD-10-PCS; principal; 2017-10-21)
DX: O24.419 Gestational diabetes mellitus in pregnancy, unspecified control (principal); Z3A.38 38 weeks gestation of pregnancy
CPT/HCPCS: 59025

== ENCOUNTER 2017-10-28 07:27 | Inpatient (IN) | payer MEDICAID ==
[2017-10-27 11:18] LABS: ABSOLUTE EOSINOPHILS # (AUTO) 0.1 10^3/uL (0.0-0.6); ABSOLUTE LYMPHOCYTES (AUTO) 2.3 10^3/uL (0.5-4.7); ABSOLUTE MONOCYTES (AUTO) 0.8 10^3/uL (0.1-1.4); BASOPHILS % (AUTO) 0.3 % (0-2); EOSINOPHILS % (AUTO) 1.4 % (0-6); HEMATOCRIT 28.9 % (36.0-47.0); HEMOGLOBIN 9.4 g/dL (12.0-15.5); LYMPHOCYTES % (AUTO) 24.7 % (13-45); MEAN CORPUSCULAR HEMOGLOBIN 24.7 pg (27.0-33.4); MEAN CORPUSCULAR HGB CONC 32.4 g/dL (32.0-36.0); MEAN CORPUSCULAR VOLUME 76 fl (80-97); MONOCYTES % (AUTO) 8.5 % (3-13); PLATELET COUNT 315 10^3/uL (150-450); RED BLOOD COUNT 3.79 10^6/uL (3.72-5.28); RED CELL DISTRIBUTION WIDTH 17.9 % (11.5-14.0); SEGMENTED NEUTROPHILS % (AUTO) 65.1 % (42-78); TOTAL CELLS COUNTED % (AUTO) 100 %; WHITE BLOOD COUNT 9.2 10^3/uL (4.0-10.5)
[2017-10-27 11:26] LABS: APPEARANCE,URINE CLOUDY; BILIRUBIN,URINE NEGATIVE (NEGATIVE); COLOR,URINE YELLOW; GLUCOSE, URINE NEGATIVE (NEGATIVE); KETONES,URINE NEGATIVE (NEGATIVE); LEUKOCYTE ESTERASE,URINE TRACE (NEGATIVE); NITRITE,URINE NEGATIVE (NEGATIVE); PROTEIN,URINE NEGATIVE (NEGATIVE); URINE SPECIFIC GRAVITY 1.011; UROBILINOGEN,URINE NEGATIVE mg/dL (<2.0)
[2017-10-27 11:37] LABS: URINE AMPHETAMINES SCREEN NEGATIVE; URINE BARBITURATES SCREEN NEGATIVE; URINE BENZODIAZEPINES SCREEN NEGATIVE; URINE COCAINE SCREEN NEGATIVE; URINE MARIJUANA (THC) SCREEN NEGATIVE; URINE METHADONE SCREEN NEGATIVE; URINE PHENCYCLIDINE SCREEN NEGATIVE
[~2017-10-28 07:27] MED LIST: CEFAZOLIN SODIUM 3 GM in NORMAL SALINE 100 ML IV PRN; LACTATED RINGERS 1000 ML IV PRN; LIDOCAINE 0.5% INJ-PF (5 MG/ML) 50 ML SDV SUBCUT PRN; RINGERS SOLUTION,LACTATED 2,000 ML IV PRN
[2017-10-28] MEDS ORDERED: OXYTOCIN 10 UNIT/ML VIAL ONE (09:22)
[2017-10-28] MEDS ORDERED: FENTANYL CITRATE INJ/PF 100 MCG/2 ML AMPUL ONE ×3 (09:22→10:45)
[2017-10-28] MEDS ORDERED: TETRACAINE HCL/PF 20MG/2ML AMPULE (SPINAL) ONE (09:23)
[2017-10-28] MEDS ORDERED: OXYTOCIN/NORMAL SALINE 20 UNIT/1,000 ML RTUINJ ONE ×2 (09:23→12:09)
[2017-10-28] MEDS ORDERED: ONDANSETRON HCL INJ/PF 4 MG/2 ML SDV ONE (09:23)
[2017-10-28] MEDS ORDERED: MIDAZOLAM 2 MG/2 ML INJ ONE ×3 (09:23→10:45)
[2017-10-28] MEDS ORDERED: CEFAZOLIN 2 GM/D5W RTU 0 GM/0 ML RTUPB IV ONE (09:50)
[2017-10-28] MEDS ORDERED: RINGERS SOLUTION,LACTATED 1,000 ML IV PRN (11:18)
[2017-10-28] MEDS ORDERED: DIPH/PERTUSS(ACELL)/TETANUS VAC/PF 0.5 ML SYR (>=10YO) IM PRN (11:18)
[2017-10-28] MEDS ORDERED: ACETAMINOPHEN 100 ML IV PRN (11:18)
[2017-10-28] MEDS ORDERED: OXYTOCIN/NORMAL SALINE 20 UNIT/1,000 ML RTUINJ IV PRN (11:18)
[2017-10-28] MEDS ORDERED: ACETAMINOPHEN 325 MG TABLET PO PRN (11:18)
[2017-10-28] MEDS ORDERED: MEASLES,MUMPS&RUBELLA VACC/PF 0.5 ML VIAL SUBCUT PRN (11:18)
[2017-10-28] MEDS ORDERED: PROMETHAZINE HCL INJ 25 MG/1 ML VIAL IV PRN ×2 (11:18→14:27)
[2017-10-28] MEDS ORDERED: NALBUPHINE HCL INJ 10 MG/1 ML AMPULE INJ ONE ×2 (11:20→14:27)
--- NOTE | 2017-10-28 11:26 | Brief Operative Note ---
BRIEF OPERATIVE REPORT DATE OF SURGERY: 10/28/17 TIME OF SURGERY: 11:20 PREOPERATIVE DIAGNOSIS: 39+0ega, , H/o C/S x 2, +RPR (Neg Trepnemal Ab), A1GDM, Polyhydramnios POSTOPERATIVE DIAGNOSIS: LAURA - delivered SURGEON: MALCOLM URBAN FINDINGS: VFI delivered at 1026, Apgars 6/9, Weight 3870g (8#9oz), copious clear fluid. Adhesions of omentum to anterior uterine body. Very thin lower uterine segment. EBL 900ml, UOP 150ml, IVF 1600ml QBL pending. normal tubes/ ovaries COMPLICATIONS: None ESTIMATED BLOOD LOSS: 900ml TISSUE REMOVED OR ALTERED: placenta and cord not sent to pathology TECHNICAL PROCEDURE: Repeat Section
[2017-10-28] MEDS ORDERED: MISOPROSTOL 0.1 MG TABLET PR ONE (11:37)
[2017-10-28] MEDS ORDERED: MISOPROSTOL 0.2 MG TABLET ONE (11:41)
[2017-10-28] MEDS: FENTANYL CITRATE INJ/PF 100 MCG/2 ML AMPUL ONE ×2 (11:42→12:02)
[2017-10-28] MEDS ORDERED: MEPERIDINE HCL/PF INJ 25 MG/1 ML DISP.SYRIN ONE (12:26)
[2017-10-28] MEDS: SIMETHICONE 80 MG TAB.CHEW PO PRN (14:12)
[2017-10-28] MEDS: OXYCODONE-ACETAMINOPHEN 5-325 MG TABLET PO PRN ×2 (14:12→19:57)
[2017-10-28] MEDS: KETOROLAC TROMETHAMINE INJ/PF 30 MG/1 ML SDV IV SCH ×2 (14:51→21:05)
[2017-10-28] MEDS: DOCUSATE SODIUM 100 MG CAPSULE PO SCH (17:34)
[2017-10-29] MEDS: SIMETHICONE 80 MG TAB.CHEW PO PRN ×2 (00:51→15:36)
[2017-10-29] MEDS: OXYCODONE-ACETAMINOPHEN 5-325 MG TABLET PO PRN ×4 (03:19→23:10)
[2017-10-29] MEDS: KETOROLAC TROMETHAMINE INJ/PF 30 MG/1 ML SDV IV SCH (06:09)
[2017-10-29 06:57] LABS: HEMATOCRIT 24.5 % (36.0-47.0); MEAN CORPUSCULAR HEMOGLOBIN 24.1 pg (27.0-33.4); MEAN CORPUSCULAR HGB CONC 32.1 g/dL (32.0-36.0); MEAN CORPUSCULAR VOLUME 75 fl (80-97); PLATELET COUNT 294 10^3/uL (150-450); RED BLOOD COUNT 3.26 10^6/uL (3.72-5.28); RED CELL DISTRIBUTION WIDTH 17.9 % (11.5-14.0); WHITE BLOOD COUNT 12.9 10^3/uL (4.0-10.5)
[2017-10-29 07:03] LABS: HEMOGLOBIN 7.9 g/dL (12.0-15.5)
[2017-10-29] MEDS: PRENATAL VITAMIN W DHA CAPSULE PO SCH (09:04)
[2017-10-29] MEDS: DOCUSATE SODIUM 100 MG CAPSULE PO SCH ×2 (09:05→17:22)
[2017-10-29] MEDS: IBUPROFEN 800 MG TABLET PO SCH ×3 (11:36→23:10)
--- NOTE | 2017-10-29 13:10 | PDOC PROGRESS REPORT ---
Subjective-OB Progress Note for:: 10/29/17 Subjective: no complaints Physical Exam (OB) Vital Signs: Temp Pulse Resp BP Pulse Ox 98.6 F 66 16 90/58 L 99 10/29/17 08:48 10/29/17 08:48 10/29/17 08:48 10/29/17 08:48 10/29/17 08:48 Intake & Output 10/28/17 10/29/17 10/30/17 06:59 06:59 06:59 Intake Total 3625 Output Total 2900 Balance 725 Weight 96.16 kg - Dressing Removed: No - open to air Incision: Well Approximated Closure Type: Sutures - Lochia Lochia Amount: Scant < 10 ml Lochia Color: Rubra/Red - Abdomen Description: Soft Hernia Present: No Flatus Presence: Present Fundal Description: Firm, Midline Describe if Not Midline: pt refused fundal massage Fundal Height: u/u - u/2 - Respiratory Breath sounds: Clear - Extremities Calf: Normal Objective-Diagnostic Laboratory: 10/29/17 06:25 10/29/17 06:25 WBC 12.9 H RBC 3.26 L Hgb 7.9 L Hct 24.5 L MCV 75 L MCH 24.1 L MCHC 32.1 RDW 17.9 H Plt Count 294
[2017-10-29] MEDS ORDERED: MAGNESIUM HYDROXIDE SUSP 30 ML UDCUP PO PRN (19:18)
[2017-10-30] MEDS: SIMETHICONE 80 MG TAB.CHEW PO PRN ×2 (04:12→11:32)
[2017-10-30] MEDS: IBUPROFEN 800 MG TABLET PO SCH ×2 (05:45→11:31)
[2017-10-30] MEDS: OXYCODONE-ACETAMINOPHEN 5-325 MG TABLET PO PRN (08:28)
--- NOTE | 2017-10-30 10:09 | PDOC DISCHARGE SUMMARY ---
Final Diagnosis Discharge Date: 10/30/17 Discharge Data - Discharge Medication Prescriptions: Oxycodone HCl/Acetaminophen [Percocet 5-325 mg Tablet] 2 tab PO Q4HP PRN #30 tablet PRN Reason: Docusate Sodium [Colace 100 mg Capsule] 100 mg PO BID #60 capsule Ibuprofen [Motrin 800 mg Tablet] 800 mg PO Q6 #60 tablet Home Medications: Vit,Calc76/Iron/Folic [Prenatabs Rx Tablet] 1 each PO DAILY 10/14/17 Albuterol Sulfate [Proair HFA] 1 - 2 puff IH Q4 PRN 10/27/17 Docusate Sodium [Colace 100 mg Capsule] 100 mg PO BID #60 capsule 10/30/17 Ibuprofen [Motrin 800 mg Tablet] 800 mg PO Q6 #60 tablet 10/30/17 Iron,Carb/Vit C/Vit B12/Folic [Iron 100 Plus Tablet] 1 each PO BID #0 10/30/17 Oxycodone HCl/Acetaminophen [Percocet 5-325 mg Tablet] 2 tab PO Q4HP PRN #30 tablet 10/30/17 Gestational Age: 39 Reason(s) for Admission: Ceasarean Section-Repeat Procedures: NST Intrapartum Procedure(s): : Low Cervical, Transverse - Data Baby 1 Female at 1 minute: 6 at 5 minutes: 9 Weight: 3870 kg Home with Mother: Yes Complications: No - Diagnosis Test Laboratory: Temp Pulse Resp BP Pulse Ox 98.5 F 105 H 18 104/55 L 97 10/30/17 07:33 10/30/17 07:33 10/30/17 07:33 10/30/17 07:33 10/30/17 07:33 10/27/17 10/27/17 10/29/17 10:30 10:37 06:25 RBC 3.79 3.26 L Hgb 9.4 L 7.9 L Hct 28.9 L 24.5 L Urine Opiates Screen NEGATIVE - Discharge information/Instructions Discharge Activity: Activity As Tolerated, No Driving, No Lifting Over 10 Pounds , Pelvic Rest, No tub bath Discharge Diet: Regular Disposition: HOME, SELF-CARE Follow up with: [facility] in: 1, Weeks
[2017-10-30] MEDS: DOCUSATE SODIUM 100 MG CAPSULE PO SCH (10:29)
[2017-10-30] MEDS: PRENATAL VITAMIN W DHA CAPSULE PO SCH (10:29)
[2017-10-30 14:03] VITALS: BP 101/58
--- NOTE | 2017-11-04 12:15 | PDOC DELIVERY SUMMARY ---
Delivery Summary - Maternal Hx : III Hx Para: II Hx # Term Pregnancies: 2 Hx # Pregnancies: 0 Hx Total # of Abortions (Sponateous & Elective): 0 Number of Living Children: 2 HO: 11/04/17 Gestational Age: 39.0 Risk Factors: Previous , Gestational Diabetes, Polyhydramnios Ruptured Membranes: AROM Time of Rupture: 10:24 Fluids: Clear - Delivery Labor: Not In Labor Presentation: Vertex Heart Rate Monitoring: Done Pre-Operatively Uterine Contraction Monitoring: External Support Person Present: Yes Location: OR : Scheduled, Repeat Placenta: Within Normal Limits Placenta Description: normal Number of Vessels (Cord): 3 Nuchal Cord: No Delivery of Placenta Date: 10/28/17 Delivery of Placenta Time: 10:27 Estimated Blood Loss: 900ml - Medications Type of Anesthesia:: Spinal - Infant Assess and Care Baby 1 Female Delivery of Date: 10/28/17 Delivery of Time: 10:26 Preprinted Number On Band: [id number] Skin to Skin: No Skin to Skin (Mins): 0 To Nursery At: 10:35 Mode of Transport: Bassinet - Delivery Personnel Correspondence School Teacher: CORNELIUS TUCKER Nursery RN: LARY SANTIAGO RN: DUSTY VILLAR MD: MALCOLM URBAN
--- NOTE | 2017-11-12 16:04 | Operative Report ---
Operative Report DATE OF SURGERY: 10/28/17 PREOPERATIVE DIAGNOSIS: 39+0ega, , H/o C/S x 2, +RPR (Neg Trepnemal Ab), A1GDM, Polyhydramnios POSTOPERATIVE DIAGNOSIS: LAURA - delivered OPERATION: Repeat Section SURGEON: MALCOLM URBAN ANESTHESIA: Spinal TISSUE REMOVED OR ALTERED: placenta and cord not sent to pathology COMPLICATIONS: None except omental adhesions ESTIMATED BLOOD LOSS: 900ml INTRAOPERATIVE FINDINGS: VFI delivered at 1026, Apgars 6/9, Weight 3870g (8#9oz) , copious clear fluid. Adhesions of omentum to anterior uterine body. Very thin lower uterine segment. EBL 900ml, UOP 150ml, IVF 1600ml QBL 1665ml ( suspect much of this is actually poly). normal tubes/ovaries PROCEDURE: Anesthesia provider: [Memo Strong MD, Jad Peace CRNA] Estimated blood loss: [900ml, QBL 1665ml] Urine output: [150ml] IV fluids: [1600ml] Indications: [32yo aaat 39+0ega presents for Repeat Section. She declines BTL. History of section times 2 (1st section was due to arrest of dilation 8#3oz). complicated by A1GDM with polyhydramnios. The risks, benefits, alternatives were discussed with the patient and she desires to proceed with planned procedure.] Procedure: The patient was taken to the operating room where spinal anesthesia was obtained and found to be adequate. She was then prepped and draped in the normal sterile fashion and placed in the dorsal supine position with a leftward tilt. A Pfannenstiel skin incision was then made and carried through to the underlying layers of the fascia with the scalpel. The fascia was incised in the midline and the incision extended laterally with the Guo scissors. The superior aspect of the fascial incision was then grasped with Beatriz clamps elevated and the underlying rectus muscles dissected off [bluntly]. Attention was then turned to the inferior aspect of the fascial incision which in a similar fashion was grasped, tented up with Beatriz clamps, and the rectus muscles dissected off [bluntly]. The rectus muscles were then in the midline and the peritoneum at the amount identified and entered [bluntly]. The peritoneal incision was then extended superiorly and inferiorly with good visualization of the bladder. The bladder blade was inserted and the vesicouterine peritoneum identified grasped with [place] [employer] pickups and entered sharply with the Metzenbaum scissors. This incision was then extended laterally with the Metzenbaum scissors and a bladder flap created digitally. The bladder blade was then reinserted and the lower uterine segment incised in a transverse fashion with the scalpel. The uterine incision was then extended bluntly. The bladder blade was removed and the infant's head was delivered from cephalic presentation atraumatically. The nose and mouth were suctioned and the cord doubly clamped and cut. And the infant was handed off to waiting pediatricians. The placenta was then delivered spontaneously and the uterus exteriorized and cleared of all clots and debris. The uterine incision was then repaired with 1- 0 Vicryl in a running locked fashion. A second layer of the same suture was used to obtain hemostasis via imbrication of the initial layer. The bladder flap was then repaired with 3-0 chromic in a running fashion. The uterus was returned to the patient's abdomen and Interceed was placed overlying the uterine incision to prevent adhesions. The gutters were cleared of all clots and debris. All operative sites were noted to be hemostatic. The fascia was reapproximated with 0 Vicryl in a running fashion from each lateral edge to the midline. The skin was closed with 3-0 Monocryl in a running subcuticular fashion with overlying Dermabond for additional dressing as well as wound closure. The patient tolerated the procedure well. Sponge lap needle and instrument counts are correct time 2. 3 g of Ancef were given prior to skin incision. The patient was taken to the recovery area awake and in stable condition.
== END 2017-10-30 15:22 | disposition home or self-care (01) | DRG 765 ==
LOC: 2S 07:27
PROVIDERS: ADMIT Student in an Organized Health Care Education/Training Program; ATTEND Student in an Organized Health Care Education/Training Program
PROC: 4A1HXCZ Monitoring of Products of Conception, Cardiac Rate, External Approach (ICD-10-PCS; 2017-10-28)
PROC: 10D00Z1 Extraction of Products of Conception, Low, Open Approach (ICD-10-PCS; principal; 2017-10-28 10:15)
DX: O34.211 Maternal care for low transverse scar from previous cesarean delivery (principal); O40.3XX0 Polyhydramnios, third trimester, not applicable or unspecified; O24.429 Gestational diabetes mellitus in childbirth, unspecified control; O75.89 Other specified complications of labor and delivery; N85.8 Other specified noninflammatory disorders of uterus; O99.89 Other specified diseases and conditions complicating pregnancy, childbirth and the puerperium; N73.6 Female pelvic peritoneal adhesions (postinfective); O99.52 Diseases of the respiratory system complicating childbirth; J45.909 Unspecified asthma, uncomplicated; O99.344 Other mental disorders complicating childbirth; F32.9 Major depressive disorder, single episode, unspecified; O99.334 Smoking (tobacco) complicating childbirth; Z3A.39 39 weeks gestation of pregnancy; Z37.0 Single live birth; Z87.891 Personal history of nicotine dependence; Z88.6 Allergy status to analgesic agent
CPT/HCPCS: 1961; 36415; 59025; 80307; 81001; 83036; 85025; 85027; 86592; 86780; 86850; 86900; 86901; 94799; C1765; J0131; J0690; J1885; J2175; J2250; J2300; J2405; J2550; J2590; J3010; J3490; J7120

== ENCOUNTER 2017-11-05 17:55 | Emergency (ER) | payer MEDICAID ==
--- NOTE | 2017-11-05 18:43 | EKG REPORT ---
SEVERITY:- ABNORMAL ECG - SINUS RHYTHM ACCELERATED AV CONDUCTION : Confirmed by: Maximino Fine MD 05-Nov-2017 18:42:24
[2017-11-05 20:05] VITALS: BP 128/84
--- NOTE | 2017-11-05 20:07 | ER Document Report ---
ED General - General Chief Complaint: Chest Pain Stated Complaint: CHEST/BACK PAIN, SHORTNESS OF BREATH Time Seen by Provider: 11/05/17 19:26 Mode of Arrival: Ambulatory Information source: Patient Notes: 32-year-old female who had a delivery just a few days prior presents with complaints of sudden sharp back pain that radiates to her chest into her neck lasting approximately 5 seconds at a time. Patient notes the symptoms only occur when she is side bending and when she is moving back to breast-feed. Patient notes it is not associated with shortness of breath difficulty breathing notes the pain is not constant. Patient denies any previous similar episodes notes during her delivery she did have some blood loss TRAVEL OUTSIDE OF THE [place] IN LAST 30 DAYS: No - HPI Onset: Yesterday Onset/Duration: Sudden Quality of pain: Sharp Severity: Mild Pain Level: 1 Associated symptoms: Body/muscle aches Exacerbated by: Movement Relieved by: Denies Similar symptoms previously: No Recently seen / treated by doctor: Yes - Related Data Allergies/Adverse Reactions: hydromorphone [From Dilaudid] Allergy (Verified 11/05/17 17:57) muscle stiffen, eyes roll back morphine Allergy (Verified 11/05/17 17:57) very itchy Past Medical History - Social History Smoking Status: Former Smoker Cigarette use (# per day): No Chew tobacco use (# tins/day): No Smoking Education Provided: No Frequency of alcohol use: None Drug Abuse: None Family History: Reviewed & Not Pertinent Patient has suicidal ideation: No Patient has homicidal ideation: No - Past Medical History Cardiac Medical History: Reports: Hx Heart Murmur - arrythmia Denies: Hx Hypertension, Hx Pulmonary Embolism Pulmonary Medical History: Reports: Hx Asthma Denies: Hx Sleep Apnea, Hx Tuberculosis Neurological Medical History: Denies: Hx Cerebrovascular Accident, Hx Seizures Endocrine Medical History: Denies: Hx Hyperthyroidism, Hx Hypothyroidism Renal/ Medical History: Reports: Hx Ovarian Cysts. Denies: Hx Kidney Stones, Hx Peritoneal Dialysis, Hx Pelvic Inflammatory Disease Malignancy Medical History: Denies: Hx Breast Cancer, Hx Cervical Cancer, Hx Ovarian Cancer GI Medical History: Reports: Hx Gastroesophageal Reflux Disease - reflux. Denies: Hx Hiatal Hernia, Hx Ulcer Psychiatric Medical History: Reports: Hx Depression Denies: Hx Bipolar Disorder, Hx Post Traumatic Stress Disorder, Hx Schizophrenia Infectious Medical History: Denies: Hx HIV Past Surgical History: Reports: Hx Section - x2 - Immunizations Hx Diphtheria, Pertussis, Tetanus Vaccination: Yes Review of Systems - Review of Systems Notes: REVIEW OF SYSTEMS: CONSTITUTIONAL : Denies fever, chills, or sweats. Denies recent illness. EENT: Denies eye, ear, throat, or mouth pain or symptoms. Denies nasal or sinus congestion or discharge. Denies throat, tongue, or mouth swelling or difficulty swallowing. CARDIOVASCULAR: Denies chest pain. Denies palpitations or racing or irregular heart beat. Denies ankle edema. RESPIRATORY: Denies cough, cold, or chest congestion. Denies shortness of breath, difficulty breathing, or wheezing. GASTROINTESTINAL: Denies abdominal pain or distention. Denies nausea, vomiting , or diarrhea. Denies blood in vomitus, stools, or per rectum. Denies black, tarry stools. Denies constipation. GENITOURINARY: Denies difficulty urinating, painful urination, burning, frequency, blood in urine, or discharge. FEMALE GENITOURINARY: Denies vaginal bleeding, heavy or abnormal periods, irregular periods. Denies vaginal discharge or odor. MUSCULOSKELETAL: Admits to back pain radiating to chest SKIN: Denies rash, lesions or sores. HEMATOLOGIC : Denies easy bruising or bleeding. LYMPHATIC: Denies swollen, enlarged glands. NEUROLOGICAL: Denies confusion or altered mental status. Denies passing out or loss of consciousness. Denies dizziness or lightheadedness. Denies headache. Denies weakness or paralysis or loss of use of either side. Denies problems with gait or speech. Denies sensory loss, numbness, or tingling. Denies seizures. PSYCHIATRIC: Denies anxiety or stress. Denies depression, suicidal ideation, or homicidal ideation. ALL OTHER SYSTEMS REVIEWED AND NEGATIVE. PHYSICAL EXAMINATION: GENERAL: Well-appearing, well-nourished and in no acute distress. HEAD: Atraumatic, normocephalic. EYES: Pupils equal round and reactive to light, extraocular movements intact, conjunctiva are normal. ENT: Nares patent, oropharynx clear without exudates. Moist mucous membranes. NECK: Normal range of motion, supple without lymphadenopathy LUNGS: Breath sounds clear to auscultation bilaterally and equal. No wheezes rales or rhonchi. HEART: Regular rate and rhythm without murmurs ABDOMEN: Soft, nontender, nondistended abdomen. No guarding, no rebound. No masses appreciated. Female : deferred Musculoskeletal: Normal range of motion, no pitting or edema. No cyanosis. Point reproducible tenderness of the T4 region no abscess no swelling no erythema NEUROLOGICAL: Cranial nerves grossly intact. Normal speech, normal gait. Normal sensory, motor exams PSYCH: Normal mood, normal affect. SKIN: Warm, Dry, normal turgor, no rashes or lesions noted. Dictation was performed using [employer] voice recognition software Physical Exam - Vital signs Vitals: Temp Pulse Resp BP Pulse Ox 98.2 F 83 14 135/92 H 100 11/05/17 18:13 11/05/17 18:13 11/05/17 18:13 11/05/17 18:13 11/05/17 18:13 Course - Re-evaluation Re-evalutation: 11/05/17 21:33 Upon palpation of the T4 region patient has the same exact pain that she notes when she moves and lays flat. Her symptoms are not consistent with a pulmonary emboli which was my biggest concern, the patient is also not having any symptoms concerning for an epidural abscess post spinal intervention. Therefore I have very low suspicion for any life-threatening issues, she is afebrile looks well is in no distress EKG noted no significant abnormality and patient looks well for discharge. Patient has been given very strict return precautions and states she will just stand and returns if there is any other concerns After performing a Medical Screening Examination, I estimate there is LOW risk for RUPTURED ESOPHAGUS, PNEUMOTHORAX, PULMONARY EMBOLISM, ACUTE CORONARY SYNDROME, OR THORACIC AORTIC DISSECTION, thus I consider the discharge disposition reasonable. I have reevaluated this patient multiple times and no significant life threatening changes are noted. The patient and I have discussed the diagnosis and risks, and we agree with discharging home with close follow-up. We also discussed returning to the Emergency Department immediately if new or worsening symptoms occur. We have discussed the symptoms which are most concerning (e.g., bloody sputum, worsening pain or shortness of breath) that necessitate immediate return. - Vital Signs Vital signs: Temp Pulse Resp BP Pulse Ox 98.2 F 69 18 128/84 H 99 11/05/17 18:13 11/05/17 20:04 11/05/17 20:04 11/05/17 20:04 03/30/18 20:04 - EKG Interpretation by [facility] EKG shows normal: Sinus rhythm, [place], Intervals, QRS Complexes Discharge - Discharge Clinical Impression: Back pain Qualifiers: Back pain location: thoracic back pain Chronicity: acute Back pain laterality: bilateral Qualified Code(s): M54.6 - Pain in thoracic spine Condition: Stable Disposition: HOME, SELF-CARE Instructions: Chest Pain of Unclear Cause ([facility]), Upper Back Strain ([facility]) Additional Instructions: Follow up with your physician tomorrow for further care or return to the ED IMMEDIATELY if symptoms worsen or new concerns occur. If you cannot afford to follow up with your primary care physician a list of low cost clinics have been provided at the end of your discharge papers as well. Referrals: WILLIAN COOMBS, [facility] [Primary Care Provider] - Follow up as needed
== END 2017-11-05 20:10 | disposition home or self-care (01) ==
LOC: ER 17:55
DX: M54.6 Pain in thoracic spine (principal); R07.9 Chest pain, unspecified; R06.02 Shortness of breath; M79.1 Myalgia; Z87.891 Personal history of nicotine dependence; J45.909 Unspecified asthma, uncomplicated
CPT/HCPCS: 93005; 93010; 99284